=== PATIENT | female | born 1990 | race Caucasian/White ===

== ENCOUNTER 2019-02-09 03:15 | Emergency (ER) | payer SELFPAY ==
[2019-02-09 03:23] VITALS: BP 133/93; PULSE 121; RESP 20; TEMP 97.2; O2SAT 100
[2019-02-09] MEDS ORDERED: LEVONORGESTREL 1.5 MG TAB PO ONE (05:25)
[2019-02-09] MEDS ORDERED: METRONIDAZOLE 250 MG TAB PO ONE (05:25)
[2019-02-09] MEDS ORDERED: CEFTRIAXONE 1 GM PDS IM ONE (05:25)
[2019-02-09] MEDS ORDERED: AZITHROMYCIN 250 MG TAB PO ONE (05:25)
[2019-02-09] MEDS ORDERED: METRONIDAZOLE 250 MG TAB ONE (05:57)
[2019-02-09] MEDS ORDERED: CEFTRIAXONE 1 GM PDS ONE (06:18)
[2019-02-09] MEDS ORDERED: AZITHROMYCIN 250 MG TAB ONE (06:19)
[2019-02-09] MEDS ORDERED: LIDOCAINE HCL 1% MPF 30 SOL ONE (06:19)
== END 2019-02-09 06:43 | DRG 923 ==
LOC: ED 03:15
DX: T74.21XA Adult sexual abuse, confirmed, initial encounter (principal)
CPT/HCPCS: 84703; 96372; 99283; 99285; J0696; A9270-GY; J2001